=== PATIENT | female | born 2000 | race American Indian/Alaskan Native ===

== ENCOUNTER 2018-06-20 02:50 | Inpatient (IN) | payer MEDICAID, OTHER ==
[2018-06-20 03:03] VITALS: BMI 22.4
[2018-06-20] MEDS ORDERED: Lactated Ringer's 1,000 ML IV ONE (03:56)
[2018-06-20] MEDS ORDERED: Lactated Ringer's 1,000 ML IV SCH (04:00)
--- NOTE | 2018-06-20 04:11 | OBHP ---
Datetime: 06/20/2018 03:58 IP Adm Impression: Term, intrauterine ; Active labor; Intact Membranes IP Admit Plan: Admit to unit; Initiate labor protocol Admit Comment, IP Provider: 17 y.o. , LMP 09/16/17, SOL 06/23/18, EGA 39w 4d C/O Ctx since 1800 h ours; now coming every 1-2 minutes; pain scale now 8/10. (+) AFM; denies LOF, VB. care: [facility] affiliated with [facility] [place]; noted for anemia. No other complicaiotns P Ob: Primip P CATCHER PLUG: 13 x monthly x 5. Denies h/o STIs PMH: denies PSH: denies NKDA Meds: PNV - QD; iron - BID Soc Hx: denies tobacco, illicit drug or EtOH use. Lives with her parents. FOB not involved. 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 Small, in discomfort with contractions. Awake, alert, oriented to time, erson and place. Pleasant and ooperative. Accompanied by her parents. Assessment: 17 y.o. P0, 39w 4d entering active phase of labor. GBS (-). Category 1 tracing. D/W pa tient admission for delivery; patient agrees. Not interested in pain medications at this time. [place] t is clinically stable. Plan: 1) Admit 2) NPO 3) Admission labs 4) IVFs 5) Continuous EFM 6) Conservative management 7) Anticipate vaginal delivery Pelvic Type - PN: Adequate Extremities - PN: Normal Abdomen - PN: Normal Back - PN: Normal Breast - PN: Normal Lungs - PN: Normal Heart - PN: Normal Thyroid - PN: Not Done Neurologic - PN: Normal HEENT - PN: Normal General - PN: Normal Weight - Estimated: 3632 Presentation-Admit: Vertex FHR - Baseline A Provider: 140 Membranes, Provider: Intact Contraction Comments Provider: 2-4 minutes Comments, ACOG Physical Exam: Abdomen: Gravid. Firm with contractions. Fundal height 39cm All other systems reviewed and are negative Gestation - Est Wks by US: 39w 4d IP Hx Assessment: The History has been Reviewed and is Current EGA AdmitDate IP: 39.4 Vital Signs Provider: Reviewed; Within Normal Limits IP Indication for Induction: Not Applicable IP Chief Complaint: Uterine contractions NICHD Variability Prov Fetus A: Moderate 6-25bpm NICHD Accel Fetus A IP Provider: 15X15 FHR Category Provider Fetus A: Category I NICHD Decel Fetus A IP Provider: None Dilatation, Provider: 4 Effacement, Provider: 80 Station, Provider: -1 Genitourinary Exam: Normal DTRs - PN: Normal
[2018-06-20 04:42] LABS: SQUAMOUS EPITHIAL 6 /hpf (0-5); URINE BACTERIA RARE (<OCC); URINE BILIRUBIN NEGATIVE (NEGATIVE); URINE BLOOD NEGATIVE (NEGATIVE); URINE CLARITY Clear (Clear); URINE COLOR Yellow (YELLOW); URINE GLUCOSE (UA) NORMAL (Normal); URINE LEUKOCYTE ESTERASE 1+ Leu/uL (Negative); URINE PROTEIN NEGATIVE (NEGATIVE); URINE UROBILINOGEN NORMAL mg/dL (0.2-1.0)
[2018-06-20 04:43] LABS: BASO % 0.4 % (0.0-2.0); EOS # 0.1 K/uL (0.0-0.7); EOS % 0.6 % (0.0-4.0); HEMOGLOBIN 12.4 g/dL (11.0-16.0); LYMPH # 1.8 K/uL (1.0-4.3); LYMPH % 18.3 % (20.0-40.0); MEAN CELL VOLUME 87.8 fL (81.0-99.0); MEAN CORPUSCULAR HEMOGLOBIN 30.1 pg (27.0-31.0); MEAN CORPUSCULAR HGB CONC 34.3 g/dL (33.0-37.0); MEAN PLATELET VOLUME 9.8 fL (7.2-11.7); MONO # 0.8 K/uL (0.0-0.8); MONO % 8.5 % (0.0-10.0); NEUT # 7.1 K/uL (1.8-7.0); NEUT % 72.2 % (50.0-75.0); NRBC % 0.1 % (0.0-2.0); RBC 4.11 Mil/uL (3.80-5.20); RED CELL DISTRIBUTION WIDTH 14.8 % (11.5-14.5); WHITE BLOOD COUNT 9.8 K/uL (4.8-10.8)
[2018-06-20 04:53] LABS: BARBITURATES, UR NEGATIVE (NEGATIVE); BENZODIAZEPINES, UR NEGATIVE (NEGATIVE); OPIATES, UR NEGATIVE (NEGATIVE); PHENCYCLIDINE, UR NEGATIVE (NEGATIVE)
--- NOTE | 2018-06-20 06:31 | OBPN ---
Datetime: 06/20/2018 06:24 IP Progress Impression: Normal progression of labor IP Procedures: Sterile Vag Exam IP Progress Plan: Continue present management; Anticipate Vaginal Delivery Contraction Comments Provider: 2-4 minutes FHR - Baseline A Provider: 130 Gestation - Est Wks by US: 39w 4d IP Progress Note Comment: Patient with strong Ctx; declines epidural Cervical exam: as above. Assessment: 17 y.o. P0, 39w 4d, good progress in active labor. GBS (-). Category 1 tracing. Clinic ally stable. Plan: 1) Anticipate vaginal delivery Vital Signs Provider: Reviewed; Within Normal Limits NICHD Accel Fetus A IP Provider: 15X15 FHR Category Provider Fetus A: Category I NICHD Variability Prov Fetus A: Moderate 6-25bpm Dilatation, Provider: 7 Effacement, Provider: 80 Station, Provider: 1 NICHD Decel Fetus A IP Provider: None Datetime: 06/20/2018 03:58 Membranes, Provider: Intact Weight - Estimated: 3632 Presentation-Admit: Vertex
[2018-06-20] MEDS ORDERED: Bupivacaine HCl/FentaNYL Cit 100 ML EPI ONE (08:21)
[2018-06-20] MEDS ORDERED: Bupivacaine 0.25% 20 ML INJ IJ ONE (08:22)
--- NOTE | 2018-06-20 10:47 | OBPN ---
Datetime: 06/20/2018 10:39 IP Progress Impression: Normal progression of labor IP Procedures: Sterile Vag Exam IP Progress Plan: Continue present management; Anticipate Vaginal Delivery Membranes, Provider: Intact Contraction Comments Provider: 2 FHR - Baseline A Provider: 130 Gestation - Est Wks by US: 39w 4d Presentation-Admit: Vertex IP Progress Note Comment: S/P epidural; feels much better Cervical exam: as above. Assessment: 17 y.o. P0, 39w 4d, near end of Stage 1 of labor. Category 1 tracing. Clinically stabl e Plan: 1) Anticipate vaginal delivery Vital Signs Provider: Reviewed; Within Normal Limits NICHD Accel Fetus A IP Provider: 15X15 FHR Category Provider Fetus A: Category I NICHD Variability Prov Fetus A: Moderate 6-25bpm Dilatation, Provider: 9 Effacement, Provider: 100 Station, Provider: 1 NICHD Decel Fetus A IP Provider: None
[2018-06-20] MEDS ORDERED: Oxytocin 30 UNIT 30 UNITS/500 ML BAG IV ONE ×2 (12:47→12:50)
--- NOTE | 2018-06-20 12:50 | OBPN ---
Datetime: 06/20/2018 12:42 IP Progress Impression: Normal progression of labor IP Procedures: Artificial ROM; Sterile Vag Exam IP Progress Plan: Continue present management; Anticipate Vaginal Delivery Membranes, Provider: Ruptured Amniotic Fluid Color, Provider: Meconium, Light Contraction Comments Provider: 3-4 FHR - Baseline A Provider: 120 Gestation - Est Wks by US: 38w 4d Presentation-Admit: Vertex IP Progress Note Comment: Patient comfortable Cervical exam: as above. AROM performed - moderate amount of thin meconium liquor Assessment: 17 y.o. P0, 38w 4d, near end of Stage 1 of labor - slightly protracted. Category 1 tra cing. Clinically stable. Plan: 1) Pitocin 2) Anticipate vaginal delivery Vital Signs Provider: Reviewed; Within Normal Limits NICHD Accel Fetus A IP Provider: 15X15 FHR Category Provider Fetus A: Category I NICHD Variability Prov Fetus A: variability Dilatation, Provider: ant lip Effacement, Provider: 100 Station, Provider: 3 NICHD Decel Fetus A IP Provider: None
[2018-06-20] MEDS ORDERED: Benzocaine/Menthol 20%-0.5% Topical Spray (60 ml) TOP PRN (14:58)
[2018-06-20] MEDS ORDERED: Oxycodone/Acetaminophen 5/325 mg Tab PO PRN (14:58)
[2018-06-20 15:44] LABS: RAPID PLASMA REAGIN NONREACTIVE (NONREACTIVE)
--- NOTE | 2018-06-20 15:44 | OBDS ---
DELIVERY PERSONNEL Delivery Doctor: Shanon Prabhakar MD Coordinator Volunteer Services: Jonathan Estrada RN Anesthesiologist: dr. rueda MATERNAL INFORMATION Delivery Anesthesia: Epidural Medications in Delivery: pitocin 20units Estimated Blood Loss (ml): 150 Placenta Cultured: No Maternal Complications: None Provider Comments: Uncomplicated vaginal delivery of live male over intact perineum, KANDY posi tion; weight 7lb, 's 9/9. 's mouth and nose bulb-suctioned on perineum; umbilical cord ngoc [place] clamped and cut. placed on mother's abdomen. Spontaneous delivery of placenta - grossly intact; 3 vessel cord Uterine exploration performed; uterus cleared of clots; firm Cervix, vagina, perineum inspected - 1st degree perineal laceration noted; repaired as above. Hemostasis assured Patient tolerated procedure well. and mother bonding. LABOR SUMMARY EDC: 06/23/2018 00:00 No. Babies in Womb: 1 Attempted: No Labor Anesthesia: Epidural LABOR INFORMATION Onset of Labor: 06/20/2018 03:50 Complete Dilatation: 06/20/2018 14:15 Other Ripening Agents: n/a Oxytocin: Augmentation Group B Beta Strep: Negative Steroids Given: None Reason Steroids Not Administered: Not Applicable MEMBRANES Membranes Rupture Method: Artificial Rupture of Membranes: 06/20/2018 12:40 Length of Rupture (hrs): 1.90 Amniotic Fluid Color: Light Meconium Amniotic Fluid Amount: Moderate Amniotic Fluid Odor: Normal STAGES OF LABOR Stage 1 hrs: 10 Stage 1 min: 25 Stage 2 hrs: 0 Stage 2 min: 19 Stage 3 hrs: 0 Stage 3 min: 7 Total Time in Labor hrs: 10 Total Time in Labor min: 51 VAGINAL DELIVERY Episiotomy: None Laceration Extension: First Degree Laceration Type: Perineal Laceration Repair: Yes Laceration Repair Note: 3-0 chromic - subcuticular. Hemostasis assured Patient tolerated procedure well. Initial Vag Sponge Count: 10 Final Vag Sponge Count: 10 Initial Vag Sharps Count: 0 Final Vag Sharps Count: 1 Sponge Count Correct: Yes; Vaginal Sweep Performed Sharps Count Correct: Yes Count Comment: Correct BABY A INFORMATION Delivery Date/Time: 06/20/2018 14:34 Method of Delivery: Vaginal Born in Route : No : N/A Forceps: N/A Vacuum Extraction: N/A Shoulder Dystocia : No SHOULDER DYSTOCIA BABY A Delivery Date/Time: 06/20/2018 14:34 PRESENTATION/POSITION BABY A Presentation: Cephalic Cephalic Presentation: Vertex Vertex Position: Left Occipital Anterior Breech Presentation: N/A PLACENTA INFORMATION BABY A Placenta Delivery Time : 06/20/2018 14:41 Placenta Method of Delivery: Spontaneous Placenta Status: Delivered SCORES BABY A Heart Rate 1 min: >100 bpm Resp Effort 1 min: Good Cry Reflex Irritability 1 min: Cough or Sneeze or Pulls Away Muscle Tone 1 min: Active Motion Color 1 min: Body Laurium, Extremities Blue SCORE 1 MIN: 9 Heart Rate 5 min: >100 bpm Resp Effort 5 min: Good Cry Reflex Irritability 5 min: Cough or Sneeze or Pulls Away Muscle Tone 5 min: Active Motion Color 5 min: Body Laurium, Extremities Blue SCORE 5 MIN: 9 INFORMATION BABY A Gestational Age at Delivery: 39.4 Gestational Status: Term Outcome : Liveborn Infant Condition : Stable Infant Sex: Male IDENTIFICATION/MEDS BABY A ID Band Number: [id number] ID Band Location: Left Arm Sensor Applied: Yes Sensor Number: [id number] Sensor Location : Cord Clamp Vitamin K Given : Not Given Erythromycin Given: Not Given WEIGHT/LENGTH BABY A Infant Birthweight (gms): 3175 Infant Weight (lb): 7 Weight (oz): 0 Length Inches: 19.00 Length cms: 48.3 CORD INFORMATION BABY A No. Cord Vessels: 3 Nuchal Cord : N/A Cord Blood Taken: Yes Suction: Mouth; Nose (Annotations: Data stored by [facility] on behalf of user) ASSESSMENT BABY A Infant Complications: Meconium Physical Findings at Delivery: Within Normal Limits Infant Respirations: Appears Normal Harness Rigger/ALS Called : Yes Care By: becca Hanson RN/Dr. Alva Transferred To: Remains with Mother
[2018-06-20 19:42] VITALS: RESP 18
[2018-06-21 07:49] LABS: BASO % 0.3 % (0.0-2.0); EOS # 0.2 K/uL (0.0-0.7); EOS % 0.9 % (0.0-4.0); HEMOGLOBIN 11.2 g/dL (11.0-16.0); LYMPH # 2.2 K/uL (1.0-4.3); MEAN CELL VOLUME 89.1 fL (81.0-99.0); MEAN CORPUSCULAR HGB CONC 33.7 g/dL (33.0-37.0); MEAN PLATELET VOLUME 9.7 fL (7.2-11.7); MONO % 6.3 % (0.0-10.0); NEUT # 12.5 K/uL (1.8-7.0); NEUT % 78.5 % (50.0-75.0); RBC 3.74 Mil/uL (3.80-5.20); RED CELL DISTRIBUTION WIDTH 14.8 % (11.5-14.5)
--- NOTE | 2018-06-21 10:18 | OBPPN ---
Datetime: 06/21/2018 10:17 PP Pain Prov: Within normal limits PP Nausea Prov: Denies PP Flatus Prov: Yes PP BM Prov: No PP Breasts Prov: Normal PP Heart Prov: Normal PP Lungs Prov: Normal PP Abdomen/Uterus Prov: Normal PP Lochia Prov: Normal PP Vulva/Perineum Prov: Normal PP CVA Tenderness Prov: Normal PP Extremities Prov: Normal PP C/S Incision Prov: Not Applicable PP Progress Prov: Normal PP Impression Prov: Normal progression PP Plan Prov: Continue present management PP Progress Note Prov: pt seen and examiend reprots pain controlled with medicaion. pt ambuating voi ding passing flatus, tolerted regular diet, denies any fever, chills, nasue, vomitnv, cp, sob. pt isb reat feedign denies any feeling of sadnes or depression. pt denies any lightheadnes,d izzyness. VSS PE GEN NAD AA ox 3 RESP: CTAB?l CVR: RRR, +S1/S2 ABD: soft, NT/ND, Fundus firm at level of umbilicis VE: minimal lochia, non foul smelling EXT: No calf tendnerss b/l, engaitve arlette's sign A/P s/p ppd #1 doign well am labs pain manamgnet encourage ambation and breast feeding Vital Signs Provider PP: Reviewed; Within Normal Limits
[2018-06-21] MEDS: Multiple Vitamins Tab PO SCH (17:15)
[2018-06-22] MEDS: Multiple Vitamins Tab PO SCH (10:25)
--- NOTE | 2018-06-22 13:49 | OBDCSUM ---
Datetime: 06/22/2018 10:55 Discharged to, Provider: Home [facility] Disch Instr Activity: Normal activity; May Shower Disch Instr Diet: Regular Discharge Diet restrict Prov: none Discharge Instructions, Provider: Routine instructions given Discharge Diagnosis, Provider: Term Delivered Discharge Time: 06/22/2018 11:30 Follow up in weeks, Provider: 6 weeks Disch Referrals: None Contraception discussed, Prov: Yes Disch Activity Restrictions: No exercising; No lifting; No sexual activity; Nothing in vagina - Inte rcourse, tampons, douche Discharge Diagnosis Prov Other: Contraception counseling Contraception after Delivery: Control Pill/Patch
[2018-06-22 18:39] VITALS: BP 105/65; PULSE 86; TEMP 97.9; O2SAT 98
== END 2018-06-22 14:10 | disposition home or self-care (01) | DRG 373 ==
LOC: C.EROB 02:50 → C.4D 03:58 → C.4M 17:22
PROVIDERS: ADMIT Obstetrics & Gynecology; ATTEND Obstetrics & Gynecology
PROC: 0HQ9XZZ Repair Perineum Skin, External Approach (ICD-10-PCS; principal; 2018-06-20)
PROC: 10E0XZZ Delivery of Products of Conception, External Approach (ICD-10-PCS; 2018-06-20)
DX: O70.0 First degree perineal laceration during delivery (principal); O77.0 Labor and delivery complicated by meconium in amniotic fluid; Z3A.39 39 weeks gestation of pregnancy; Z37.0 Single live birth